=== PATIENT | male | born 1995 | race Caucasian/White ===

== ENCOUNTER 2016-07-17 10:32 | Emergency (ER) | payer SELFPAY ==
--- NOTE | 2016-07-17 12:39 | ED ---
Throat Pain/Nasal Congestion - HPI Summary HPI Summary: Patient opened the doors to the transport van and a piece of plastic from the door edge snapped back and hit him in the face just under his left eye. His contact came out but he is unsure if he was hit in the eye. He denies vision changes although his eye is watery which makes it somewhat blurry. No RODRIGUEZ, diplopia or photophobia. - History of Current Complaint Chief Complaint: EDEyeProblem Time Seen by Provider: 07/17/16 10:56 Hx Obtained From: Patient Onset/Duration: Sudden Onset Severity: Mild Associated Signs And Symptoms: Positive: Negative Cough: None - Allergies/Home Medications Allergies/Adverse Reactions: Allergies Allergy/AdvReac Type Severity Reaction Status Date / Time No Known Allergies Allergy Verified 12/21/15 11:43 PMH/Surg Hx/FS Hx/Imm Hx Previously Healthy: Yes Sensory History: Reports: Hx Contacts or Glasses Opthamlomology History: Reports: Hx Contacts or Glasses Infectious Disease History: No Infectious Disease History: Denies: Traveled Outside the [place] in Last 30 Days - Family History Known Family History: Positive: None - Social History Occupation: Employed Full-time Lives: With Family Alcohol Use: Occasionally Substance Use Type: Reports: None Smoking Status (MU): Never Smoked Tobacco Review of Systems Positive: Blurred Vision - christal. Negative: Photophobia, Diplopia, Drainage, Erythema Positive: Other - .5mm abrasion under left eye Negative: Headache All Other Systems Reviewed And Are Negative: Yes Physical Exam Triage Information Reviewed: Yes Vital Signs On Initial Exam: Initial Vitals Temp Pulse Resp BP Pulse Ox 98.9 F 82 16 137/80 100 07/17/16 10:50 07/17/16 10:50 07/17/16 10:50 07/17/16 10:50 07/17/16 10:50 Vital Signs Reviewed: Yes Appearance: Positive: Well-Appearing, No Pain Distress, Well-Nourished Skin: Positive: Warm, Skin Color Reflects Adequate Perfusion, Dry, Soft Head/Face: Positive: Normal Head/Face Inspection Eyes: Positive: EOMI, AUBRIE, Conjunctiva Clear ENT: Positive: Hearing grossly normal Respiratory/Lung Sounds: Positive: Breath Sounds Present Cardiovascular: Positive: RRR Musculoskeletal: Negative: Edema Left, Edema Right Neurological: Positive: Sensory/Motor Intact, Alert, Oriented to Person Place, Time Psychiatric: Positive: Affect/Mood Appropriate AVPU Assessment: Alert Procedures - Eye Procedure Alcaine Drops Administered: Yes Eye Irrigated w/ Saline (ccs): 20 Diagnostics - Vital Signs Vital Signs Temp Pulse Resp BP Pulse Ox 07/17/16 10:54 98.9 F 82 16 137/80 100 07/17/16 10:50 98.9 F 82 16 137/80 100 - Laboratory Lab Statement: Any lab studies that have been ordered have been reviewed, and results considered in the medical decision making process. EENT Course/Dx - Differential Diagnoses Differential Diagnoses: Abrasion, Corneal Abrasion, Detached Retina, Foreign Body, Keratitis, Laceration, Penetrating Injury, Periorbital/Orbital Cellulitis - Diagnoses Provider Diagnoses: Abrasion, Eye irritation Discharge - Discharge Plan Condition: Stable Disposition: HOME Patient Education Materials: Blurred Vision (ED) Forms: *Work Release Referrals: Kelly Zavala MD [Primary Care Provider] - Additional Instructions: Please wear your glasses to allow your eye to rest as needed. Use ibuprofen for pain. Follow-up with your regular doctor or return to the emergency department if symptoms worsen.
[2016-07-17 13:09] VITALS: BP 136/79
== END 2016-07-17 12:54 | disposition home or self-care (01) ==
LOC: ED 10:32
DX: S00.212A Abrasion of left eyelid and periocular area, initial encounter (principal); H53.8 Other visual disturbances; W22.8XXA Striking against or struck by other objects, initial encounter; Y93.9 Activity, unspecified; Y92.9 Unspecified place or not applicable
CPT/HCPCS: 99281